=== PATIENT | female | born 1990 | race Caucasian/White ===

== ENCOUNTER 2019-10-25 14:31 | Outpatient (CLI) | payer SELFPAY ==
[~2019-10-25] VITALS: Ht 170.2 cm; Wt 105.9 kg
[2019-10-25 14:30] VITALS: BP 130/82
[~2019-10-25 14:31] MED LIST: IBUP-1222 PO; OXYC-302 PO
[2019-10-25 15:04] LABS: MICROSCOPIC INDICATED
[2019-10-25 15:09] LABS: BASOPHILS # (AUTO) 0.03 x10^3/uL (0-0.1); BASOPHILS % (AUTO) 0 % (0-1); EOSINOPHILS # (AUTO) 0.09 x10^3/uL (0-0.4); EOSINOPHILS % (AUTO) 1 % (1-7); LYMPHOCYTES # (AUTO) 1.74 x10^3/uL (1-3.4); LYMPHOCYTES % (AUTO) 20 % (22-44); MD NO; MEAN CORPUSCULAR HEMOGLOBIN 24.6 pg (27.0-34.8); MEAN CORPUSCULAR HGB CONC 31.3 g/dL (32.4-35.8); MEAN CORPUSCULAR VOLUME 78.5 fL (80-100); MEAN PLATELET VOLUME 8.3 fL (7.4-10.4); MONOCYTES # (AUTO) 0.63 x10^3/uL (0.2-0.8); MONOCYTES % (AUTO) 7 % (2-9); NEUTROPHILS # (AUTO) 6.07 x10^3/uL (1.8-6.8); NEUTROPHILS % (AUTO) 71 % (42-75); PLATELET COUNT 242 x10^3/uL (130-400); RED BLOOD COUNT 4.49 x10^6/uL (3.82-5.3); RED CELL DISTRIBUTION WIDTH 14.7 % (9.6-15.2)
[2019-10-25 15:12] LABS: TOTAL PROTEIN,URINE RANDOM < 5 mg/dL (0-12)
[2019-10-25 15:18] LABS: ALANINE AMINOTRANSFERASE 13 U/L (12-78); ALBUMIN 2.4 g/dL (3.4-5.0); ANION GAP 10 mmol/L (5-15); BILIRUBIN, DIRECT 0.2 mg/dL (0.1-0.2); CALCIUM 8.1 mg/dL (8.5-10.1); CHLORIDE 108 mmol/L (98-107); CREATININE 0.48 mg/dL (0.55-1.02)
[2019-10-25 15:21] LABS: ALKALINE PHOSPHATASE 82 U/L (45-117); BILIRUBIN,TOTAL 0.7 mg/dL (0.2-1.0); TOTAL PROTEIN 6.3 g/dL (6.4-8.2)
== END 2019-10-25 16:30 | disposition home or self-care (01) ==
LOC: LDOP 14:31
PROVIDERS: ATTEND Obstetrics & Gynecology Maternal & Fetal Medicine
DX: O13.3 Gestational [pregnancy-induced] hypertension without significant proteinuria, third trimester (principal); Z3A.35 35 weeks gestation of pregnancy
CPT/HCPCS: 36415; 59025; 80053; 81001; 82248; 82570; 84156; 84550; 85025; 87086

== ENCOUNTER 2019-10-26 20:32 | Observation (INO) | payer OTHER ==
[~2019-10-26] VITALS: Ht 170.2 cm; Wt 105.0 kg
[2019-10-26 20:43] VITALS: BP 139/80
[2019-10-26] MEDS ORDERED: BETAMETHASONE 6 MG/ML, 5ML IM ONE (21:17)
[2019-10-26] MEDS ORDERED: BETAMETHASONE 6 MG/ML, 5ML IM SCH (21:30)
[2019-10-26 21:58] LABS: BASOPHILS # (AUTO) 0.02 x10^3/uL (0-0.1); BASOPHILS % (AUTO) 0 % (0-1); EOSINOPHILS % (AUTO) 1 % (1-7); LYMPHOCYTES # (AUTO) 1.94 x10^3/uL (1-3.4); LYMPHOCYTES % (AUTO) 25 % (22-44); MD NO; MEAN CORPUSCULAR HEMOGLOBIN 24.3 pg (27.0-34.8); MEAN CORPUSCULAR HGB CONC 31.3 g/dL (32.4-35.8); MEAN CORPUSCULAR VOLUME 77.7 fL (80-100); MEAN PLATELET VOLUME 8.4 fL (7.4-10.4); MONOCYTES # (AUTO) 0.61 x10^3/uL (0.2-0.8); MONOCYTES % (AUTO) 8 % (2-9); NEUTROPHILS # (AUTO) 5.26 x10^3/uL (1.8-6.8); NEUTROPHILS % (AUTO) 66 % (42-75); PLATELET COUNT 248 x10^3/uL (130-400); RED BLOOD COUNT 4.34 x10^6/uL (3.82-5.3); RED CELL DISTRIBUTION WIDTH 14.8 % (9.6-15.2)
[2019-10-26 22:06] LABS: ALANINE AMINOTRANSFERASE 12 U/L (12-78); ALBUMIN 2.3 g/dL (3.4-5.0); ANION GAP 9 mmol/L (5-15); CALCIUM 8.2 mg/dL (8.5-10.1); CHLORIDE 109 mmol/L (98-107); CREATININE 0.42 mg/dL (0.55-1.02)
[2019-10-26 22:09] LABS: MICROSCOPIC INDICATED
[2019-10-26 22:09] LABS: ALKALINE PHOSPHATASE 83 U/L (45-117); BILIRUBIN,TOTAL 0.5 mg/dL (0.2-1.0); TOTAL PROTEIN 6.1 g/dL (6.4-8.2)
[2019-10-26 22:33] LABS: TOTAL PROTEIN,URINE RANDOM < 5 mg/dL (0-12)
== END 2019-10-27 07:05 | disposition home or self-care (01) ==
LOC: LDOP 20:32 → EDIP 21:10 → LDIP 21:19
PROVIDERS: ADMIT Obstetrics & Gynecology Maternal & Fetal Medicine; ATTEND Obstetrics & Gynecology Maternal & Fetal Medicine
DX: O14.93 Unspecified pre-eclampsia, third trimester (principal); Z20.828 Contact with and (suspected) exposure to other viral communicable diseases; Z3A.35 35 weeks gestation of pregnancy
CPT/HCPCS: 36415; 59025; 80053; 81001; 82570; 84156; 84550; 85025; 87081; 87635; 96372; G0378; J0702

== ENCOUNTER 2019-10-27 21:39 | Outpatient (CLI) | payer SELFPAY ==
[2019-10-27] MEDS ORDERED: BETAMETHASONE 6 MG/ML, 5ML IM ONE (22:00)
== END 2019-10-27 22:48 | disposition home or self-care (01) ==
LOC: LDOP 21:39
PROVIDERS: ATTEND Obstetrics & Gynecology Maternal & Fetal Medicine
DX: O26.893 Other specified pregnancy related conditions, third trimester (principal); Z3A.35 35 weeks gestation of pregnancy
CPT/HCPCS: 59025; 96372; J0702

== ENCOUNTER 2019-11-10 20:40 | Inpatient (IN) | payer OTHER ==
[~2019-11-10] VITALS: Ht 170.2 cm; Wt 104.0 kg
[2019-11-10 20:54] VITALS: BP 135/110
[2019-11-10] MEDS ORDERED: OXYTOCIN 30U/ 0.9% NaCL 500ML 500 ML IV PRN (21:24)
[2019-11-10] MEDS ORDERED: LACTATED RINGERS 1,000 ML IV SCH (21:24)
[2019-11-10] MEDS ORDERED: OXYTOCIN 30U/ 0.9% NaCL 500ML 500 ML IV ONE (21:24)
[2019-11-10] MEDS ORDERED: D5%-LACTATED RINGERS 1,000 ML IV SCH (21:24)
[2019-11-10] MEDS ORDERED: TERBUTALINE 1 MG/ML, 1ML SQ PRN (21:30)
[2019-11-10] MEDS ORDERED: TERBUTALINE 1 MG/ML, 1ML IVPush PRN (21:30)
[2019-11-10] MEDS ORDERED: FENTANYL PF 100 MCG/2ML IVPush PRN (21:30)
[2019-11-10] MEDS ORDERED: CALCIUM CARBONATE 500 MG TAB.CHEW PO PRN (21:30)
[2019-11-10] MEDS ORDERED: FENTANYL PF 100 MCG/2ML IV PRN (21:30)
[2019-11-10] MEDS ORDERED: ONDANSETRON 2MG/ML, 2ML IVPush PRN (21:30)
[2019-11-10] MEDS ORDERED: NEWBORN KIT ONE (21:34)
[2019-11-10] MEDS ORDERED: LIDOCAINE 1%, 20ML ONE (21:34)
[2019-11-10] MEDS ORDERED: OXYTOCIN 30U/ 0.9% NaCL 500ML 500 ML ONE (21:34)
[2019-11-10] MEDS ORDERED: MISOPROSTOL 200 MCG TABLET ONE (21:34)
[2019-11-10 21:47] LABS: BASOPHILS # (AUTO) 0.03 x10^3/uL (0-0.1); BASOPHILS % (AUTO) 0 % (0-1); EOSINOPHILS # (AUTO) 0.15 x10^3/uL (0-0.4); EOSINOPHILS % (AUTO) 2 % (1-7); LYMPHOCYTES # (AUTO) 1.85 x10^3/uL (1-3.4); LYMPHOCYTES % (AUTO) 21 % (22-44); MD NO; MEAN CORPUSCULAR HEMOGLOBIN 24.2 pg (27.0-34.8); MEAN CORPUSCULAR HGB CONC 32.2 g/dL (32.4-35.8); MEAN CORPUSCULAR VOLUME 75.2 fL (80-100); MEAN PLATELET VOLUME 8.6 fL (7.4-10.4); MONOCYTES # (AUTO) 0.69 x10^3/uL (0.2-0.8); MONOCYTES % (AUTO) 8 % (2-9); NEUTROPHILS # (AUTO) 5.93 x10^3/uL (1.8-6.8); NEUTROPHILS % (AUTO) 69 % (42-75); PLATELET COUNT 245 x10^3/uL (130-400); RED BLOOD COUNT 4.57 x10^6/uL (3.82-5.3); RED CELL DISTRIBUTION WIDTH 15.6 % (9.6-15.2)
[2019-11-10 21:57] LABS: ALANINE AMINOTRANSFERASE 11 U/L (12-78); ALBUMIN 2.5 g/dL (3.4-5.0); ANION GAP 7 mmol/L (5-15); CALCIUM 8.6 mg/dL (8.5-10.1); CHLORIDE 111 mmol/L (98-107); CREATININE 0.67 mg/dL (0.55-1.02)
[2019-11-10 22:00] LABS: ALKALINE PHOSPHATASE 115 U/L (45-117); BILIRUBIN,TOTAL 0.6 mg/dL (0.2-1.0); TOTAL PROTEIN 6.4 g/dL (6.4-8.2)
[2019-11-10] MEDS ORDERED: FENTANYL/BUPIV./NS/PF 250 ML EPIDCONT ONE (22:23)
[2019-11-10 22:55] LABS: MICROSCOPIC INDICATED
[2019-11-10] MEDS ORDERED: BUPIVACAINE 0.25% ONE (23:01)
[2019-11-10] MEDS: FENTANYL/BUPIV./NS/PF 250 ML EPIDCONT SCH (23:24)
[2019-11-10] MEDS: LACTATED RINGERS 1,000 ML IV SCH (23:24)
[2019-11-10] MEDS ORDERED: EPHEDRINE 50 MG/ML, 1ML IVPush PRN (23:30)
[2019-11-10] MEDS ORDERED: LACTATED RINGERS 1,000 ML IVBOLUS PRN (23:30)
[2019-11-11] MEDS: OXYTOCIN 30U/ 0.9% NaCL 500ML 500 ML IV SCH ×3 (03:45→23:45)
[2019-11-11] MEDS ORDERED: DIPH,PERTUSS(ACELL),TET VAC/PF NC IM-VACC PRN (04:00)
[2019-11-11] MEDS ORDERED: CARBOPROST TROMETHAMINE 250 MCG/ML, 1ML IM PRN (04:00)
[2019-11-11] MEDS ORDERED: ACETAMINOPHEN 325 MG TABLET PO PRN ×2 (04:00)
[2019-11-11] MEDS ORDERED: OXYcodone/APAP 5/325MG TABLET PO PRN (04:00)
[2019-11-11] MEDS ORDERED: SIMETHICONE 80 MG CHEW TAB PO PRN (04:00)
[2019-11-11] MEDS ORDERED: MISOPROSTOL 200 MCG TABLET PR PRN (04:00)
[2019-11-11 06:00] VITALS: BP 117/71
[2019-11-11] MEDS: LACTATED RINGERS 1,000 ML IV SCH ×3 (07:24→23:24)
[2019-11-11] MEDS: DOCUSATE 100 MG CAPSULE PO PRN (07:49)
[2019-11-11] MEDS: IBUPROFEN 600 MG TABLET PO PRN ×2 (07:49→14:18)
[2019-11-11] MEDS: OXYcodone/APAP 5/325MG TABLET PO PRN ×3 (07:49→19:48)
[2019-11-11] MEDS: PRENATAL VIT/IRON/FA 1 EACH TABLET PO SCH (07:50)
[2019-11-11 07:54] VITALS: BP 116/75
[2019-11-11 12:04] LABS: BASOPHILS # (AUTO) 0.03 x10^3/uL (0-0.1); BASOPHILS % (AUTO) 0 % (0-1); EOSINOPHILS # (AUTO) 0.06 x10^3/uL (0-0.4); EOSINOPHILS % (AUTO) 1 % (1-7); LYMPHOCYTES # (AUTO) 2.17 x10^3/uL (1-3.4); LYMPHOCYTES % (AUTO) 21 % (22-44); MD NO; MEAN CORPUSCULAR HEMOGLOBIN 23.6 pg (27.0-34.8); MEAN CORPUSCULAR HGB CONC 31.1 g/dL (32.4-35.8); MEAN CORPUSCULAR VOLUME 76.1 fL (80-100); MEAN PLATELET VOLUME 8.3 fL (7.4-10.4); MONOCYTES # (AUTO) 0.79 x10^3/uL (0.2-0.8); MONOCYTES % (AUTO) 8 % (2-9); NEUTROPHILS # (AUTO) 7.43 x10^3/uL (1.8-6.8); NEUTROPHILS % (AUTO) 71 % (42-75); PLATELET COUNT 226 x10^3/uL (130-400); RED BLOOD COUNT 4.58 x10^6/uL (3.82-5.3); RED CELL DISTRIBUTION WIDTH 15.3 % (9.6-15.2)
[2019-11-11 14:25] VITALS: BP 118/82
[2019-11-11 20:00] VITALS: BP 118/78
[2019-11-11] MEDS: FENTANYL/BUPIV./NS/PF 250 ML EPIDCONT SCH (23:24)
[2019-11-12 00:05] VITALS: BP 116/76
[2019-11-12] MEDS: IBUPROFEN 600 MG TABLET PO PRN ×2 (00:47→07:42)
[2019-11-12] MEDS: OXYcodone/APAP 5/325MG TABLET PO PRN ×2 (00:47→07:42)
[2019-11-12] MEDS: LACTATED RINGERS 1,000 ML IV SCH (07:24)
[2019-11-12] MEDS: PRENATAL VIT/IRON/FA 1 EACH TABLET PO SCH (07:40)
[2019-11-12] MEDS: DOCUSATE 100 MG CAPSULE PO PRN (07:40)
[2019-11-12 07:45] VITALS: BP 120/78
[2019-11-12] MEDS: OXYTOCIN 30U/ 0.9% NaCL 500ML 500 ML IV SCH (09:45)
[2019-11-12] MEDS ORDERED: IBUP200T49 PO (12:00)
[2019-11-12] MEDS ORDERED: OXYC-302 PO (12:01)
== END 2019-11-12 12:15 | disposition home or self-care (01) | DRG 807 ==
LOC: LDOP 20:40 → LDIP 21:17 → 2NW 11-11 05:31
PROVIDERS: ADMIT Obstetrics & Gynecology Maternal & Fetal Medicine; ATTEND Obstetrics & Gynecology Maternal & Fetal Medicine
PROC: 3E033VJ Introduction of Other Hormone into Peripheral Vein, Percutaneous Approach (ICD-10-PCS; 2019-11-10)
PROC: 10E0XZZ Delivery of Products of Conception, External Approach (ICD-10-PCS; principal; 2019-11-11)
PROC: 3E0R3BZ Introduction of Anesthetic Agent into Spinal Canal, Percutaneous Approach (ICD-10-PCS; 2019-11-11)
PROC: 00HU33Z Insertion of Infusion Device into Spinal Canal, Percutaneous Approach (ICD-10-PCS; 2019-11-11)
DX: O13.4 Gestational [pregnancy-induced] hypertension without significant proteinuria, complicating childbirth (principal); Z37.0 Single live birth; Z3A.37 37 weeks gestation of pregnancy
CPT/HCPCS: 36415; 80053; 81001; 82570; 84156; 84550; 85025; 86592; 86850; 86900; G0378; J2590; J3010; J7120